=== PATIENT | male | born 1960 | race Two or more races ===

== ENCOUNTER 2022-03-15 08:26 | Emergency (ER) | payer SELFPAY ==
[~2022-03-15] VITALS: Ht 167.6 cm; Wt 70.0 kg
[2022-03-15 09:42] LABS: BASOPHILS % 0.2 % (0.0-2.0); EOSINOPHILS % 2.9 % (0.0-5.0); HEMATOCRIT. 38.2 % (42.0-52.0); HEMOGLOBIN. 13.1 g/dL (14.0-18.0); MEAN CORPUSCULAR VOLUME 90.9 fL (80.0-94.0); MEAN PLATELET VOLUME 8.4 fl (7.4-10.4); MONOCYTES % 9.7 % (2.0-8.0); NEUTROPHILS % 73.2 % (40.0-76.0); PLATELET 105 x1000/uL (130-400); RED BLOOD CELL COUNT 4.21 mill/uL (4.7-6.1); RED CELL DISTRIBUTION WIDTH 13.5 % (11.6-14.6)
[2022-03-15] MEDS ORDERED: KETOROLAC 30MG/ML VIAL IV STA (09:42)
[2022-03-15 09:48] LABS: CHLORIDE 109 mEq/L (98-107)
[2022-03-15 09:56] LABS: PROTHROMBIN TIME 10.3 sec (9.6-11.0)
[2022-03-15] MEDS ORDERED: POTASSIUM CHLORIDE 20MEQ TABLET SR PO ONE (11:30)
[2022-03-15 14:00] VITALS: BP 144/62
== END 2022-03-15 14:18 | disposition home or self-care (01) ==
LOC: ER 08:26
DX: R07.89 Other chest pain (principal); F12.10 Cannabis abuse, uncomplicated; I10 Essential (primary) hypertension; Z98.890 Other specified postprocedural states
CPT/HCPCS: 36415; 71045; 80053; 83690; 84484; 85025; 85610; 93005; 96374; 99285; J1885; Z7610